=== PATIENT | female | born 1990 | race Caucasian/White ===

== ENCOUNTER → 2018-06-04 | Outpatient (CLI) | payer BC, MEDICAID | LOC: OD 16:31 | PROVIDERS: ATTEND Advanced Practice Midwife | DX: O36.80X0 Pregnancy with inconclusive fetal viability, not applicable or unspecified (principal) | CPT/HCPCS: 36415; 84702; 86900; 86901 ==

== ENCOUNTER → 2019-04-30 | Outpatient (CLI) | payer OTHER | LOC: OD 16:44 | PROVIDERS: ATTEND Student in an Organized Health Care Education/Training Program | DX: O36.80X0 Pregnancy with inconclusive fetal viability, not applicable or unspecified (principal) | CPT/HCPCS: 36415; 84702 ==